=== PATIENT | male | born 1985 | race Caucasian/White ===

== ENCOUNTER 2021-03-04 07:11 | Inpatient (IN) | payer SELFPAY ==
[2021-03-04] VITALS (12 sets, daily range): BP systolic 126–165; BP diastolic 70–93; PULSE 45–55; RESP 12–20; TEMP 36.8–37.1; O2SAT 94–99; BMI 16.8
--- NOTE | 2021-03-04 07:18 | W.ED.ABDPA2 ---
HPI - Abdominal Pain General: Chief Complaint: Abdominal Pain Stated Complaint: N/V,ABD PAIN Time Seen by Provider: 03/04/21 07:14 History of Present Illness: HPI narrative: 35-year-old male presents ER complaining of nausea vomiting abdominal pain. Symptoms began about 3 days ago. He is not had a bowel movement today but had been having regularly. He denies any medic easy or melena. He seems to vaguely localized the pain to the right side of the abdomen is difficult to get a clear sense of where the worst of the pain. Several episodes of vomiting today. He denies dysuria urgency or frequency or fever. MD elicited complaint: abdominal pain Pertinent past history: constipation Onset (ago): day(s) (3) Location: Diffuse and RLQ Severity: severe Quality: cramping and stabbing Migration to: RUQ and RLQ Exacerbating factors: vomiting, movement and other (Exam) Relieving factors: medication Associated Symptoms: Reports constipation, GI cramping, nausea, poor appetite and vomiting; Denies anorexia, belching, bloating, change in bowel habits, change in stool character, chills, coffee ground emesis, diarrhea, dyspepsia, dysuria, excessive flatus, fever(s), heartburn, hematochezia, hematuria, hematemesis, fecal incontinence, loose stools, melena and syncope Review of Systems Const: Denies: fever(s) or chills ENMT: Denies: throat pain, ear or mastoid pain, nasal discharge or nasal congestion Card: Denies: syncope Resp: Denies: dyspnea, productive cough or non-productive cough GI: Reports: nausea, vomiting, constipation and GI cramping; Denies: hematemesis, coffee ground emesis, heartburn, diarrhea, bloating, belching, excessive flatus, fecal incontinence, change in bowel habits, change in stool character, hematochezia or melena : Denies: dysuria or hematuria Skin/Breast: Denies: rash or pruritus PFSH ED PFSH: Medical History Chronic back pain Surgical History No significant past surgical history Social History Smoking and tobacco status: current every day smoker cigarettes Packs smoked per day: 2 Number of cigarettes per day: 6-10 Alcohol intake: never Substance/Drug Use: current Substance/Drug use type: Marijuana Physical Exam Const: COMMON NORMALS: no acute distress GENERAL APPEARANCE: cooperative and comfortable ORIENTATION/CONSCIOUSNESS: Yes awake, Yes oriented to person, Yes oriented to place and Yes oriented to time HENMT: COMMON NORMALS: normocephalic, atraumatic and hearing grossly normal bilaterally HEAD & SCALP: normocephalic and atraumatic Neck/C-Spine: COMMON NORMALS: no JVD Resp: COMMON NORMALS: normal respiratory effort, No retractions, No use of accessory muscles and clear to auscultation bilaterally AUSCULTATION: clear to auscultation bilaterally Cardio: COMMON NORMALS: no JVD, regular rate, regular rhythm and No murmurs present (Cardio) RATE: regular rate RHYTHM: regular rhythm GI: COMMON NORMALS: No hepatosplenomegaly present AUSCULTATION: Yes normoactive bowel sounds PALPATION: Yes Tenderness to palpation present (GI) (Severe diffuse, tenderness disproportionate with exam) and Yes No hepatosplenomegaly present Extremity: COMMON NORMALS: normal to inspection, capillary refill normal, no clubbing, cyanosis or edema, no calf tenderness and no pedal edema Neuro: SENSORIUM/ORIENTATION: Yes oriented to person, Yes oriented to place and Yes oriented to time Skin: COMMON NORMALS: no rashes or lesions noted GENERAL SKIN EXAM: no rashes or lesions noted Course Vital Signs: Vital signs: Vital Signs Temperature 98.8 F 03/05/21 04:00 Pulse Rate 67 03/05/21 04:00 Respiratory Rate 18 03/05/21 05:46 Blood Pressure 145/77 03/05/21 04:00 Pulse Oximetry 91 03/05/21 04:00 MDM - Abdominal Pain MDM Narrative: Medical decision making narrative: CT showed fluid in the abdomen he is has a very low BMI and very little body fat we really cannot see his appendix very well but he did have some inflammation around the gallbladder as well as some pelvic and right upper quadrant fluid around the gallbladder and liver. Ultrasound was ordered after consultation with radiology did not show any definitive Raeann cystitis nor were we able to identify the appendix. Patient has leukocytosis exam is difficult and is uncertain how much it contributes reliably to his evaluation. He does have a significant amount of fluid intra-abdominal. Cannot be certain of the source. Discussed with Dr. Bhat and asked him to consult he recommended observation and starting on antibiotics. Will admit to his services. Lab Data: Labs: Lab Results 03/04/21 03/04/21 Range/Units 08:10 08:10 WBC 22.8 H (4.0-10.0) 10^3/ uL RBC 4.56 (4.1-5.3) 10^6/u L Hgb 15.8 (11.7-16.6) g/dL Hct 46.3 (42.0-52.0) % MCV 101.5 H (80-94) fL MCH 34.6 H (28.0-34.0) pg MCHC 34.1 (30.0-36.0) g/dL RDW 16.5 H (12.1-15.1) % Plt Count 313 (130-400) 10^3/c mm MPV 9.7 (7.4-10.4) fL Neut % (Auto) 86.1 % Lymph % (Auto) 8.2 % [place] % (Auto) 4.6 % Eos % (Auto) 0.1 % Baso % (Auto) 0.3 % Neut # (Auto) 19.64 H (1.8-7.7) 10^3/u L Lymph # (Auto) 1.9 (0.8-4.8) 10^3/u L [place] # (Auto) 1.0 H (0.2-0.9) 10^3/u L Eos # (Auto) 0.0 (0.0-0.8) 10^3/u L Baso # (Auto) 0.1 (0.0-0.1) 10^3/u L Nucleated RBC % (a uto) 0 % Nucleated RBCs # 0.0 /100WBC Sodium 141 (136-145) mmol/L Potassium 4.3 (3.5-5.1) mmol/L Chloride 102 (98-107) mmol/L Carbon Dioxide 27 (22-29) mmol/L Anion Gap 16.3 (5-19) BUN 18 (6-20) mg/dL Creatinine 0.8 (0.7-1.2) mg/dL GFR Calculation 110.0 (90-130) mL/min Glucose 112 (65-115) mg/dL Calculated Osmolal ity 295 (285-295) mOsm/k g Calcium 9.5 (8.5-10.5) mg/dL Total Bilirubin 0.7 (0.15-1.2) mg/dL AST 18 (0-40) U/L ALT 22 (0-41) U/L Alkaline Phosphata se 95 (40-130) IU/L Total Protein 7.3 (6.6-8.7) g/dL Albumin 4.8 (3.5-5.2) g/dL Globulin 2.5 (1.3-4.6) g/dL Lipase 14 (13-60) U/L Discharge Plan Discharge Patient Disposition: Placed in Observation Admit Provider: Werner Bhat Clinical Impression: Right upper quadrant abdominal pain, Nausea & vomiting, Leukocytosis Coding Level of Care Code ED Weaving Machine Operator for Thuy Maguire
[2021-03-04 08:30] LABS: Basophils # 0.1 10^3/uL (0.0-0.1); Basophils % 0.3 %; Eosinophils % 0.1 %; Hematocrit 46.3 % (42.0-52.0); Hemoglobin 15.8 g/dL (11.7-16.6); Lymphocytes # 1.9 10^3/uL (0.8-4.8); Lymphocytes % 8.2 %; Mean Corpuscular HGB Conc 34.1 g/dL (30.0-36.0); Mean Corpuscular Hemoglobin 34.6 pg (28.0-34.0); Mean Corpuscular Volume 101.5 fL (80-94); Mean Platelet Volume 9.7 fL (7.4-10.4); Monocytes % 4.6 %; Neutrophils # 19.64 10^3/uL (1.8-7.7); Neutrophils % 86.1 %; Nucleated Red Blood Cells % 0 %; Platelet Count 313 10^3/cmm (130-400); Red Blood Count 4.56 10^6/uL (4.1-5.3); Red Cell Distribution Width 16.5 % (12.1-15.1); White Blood Count 22.8 10^3/uL (4.0-10.0)
--- NOTE | 2021-03-04 08:45 | CT_ITS ---
WS: [id number] CT ABDOMEN PELVIS TECHNIQUE: Contrast-enhanced CT of the abdomen and pelvis with coronal and sagittal reformatted image s. CLINICAL INFORMATION: abd pain COMPARISON: None. DLP: 665.[address] scans at [facility] use at least one of these dose optimization techniques: automat ed exposure control; mA and/or kV adjustment per patient size (includes targeted exams where dose is matched to clinical indication); or iterative reconstruction. FINDINGS: Lung bases are well aerated. Fluid distended gallbladder with mild prominence of the common bile duct . Mild intrahepatic biliary ductal dilatation. No visualized choledocholithiasis. Minimal dilatation of the pancreatic duct. Pancreatic parenchyma appears normal. Free fluid in the right upper quadrant and right lower quadrant. Trace free fluid in the pelvis. Enhancing gallbladder wall. No cholelithias is visualized. Air-fluid level in the stomach. Normal renal parenchymal enhancement. No hydronephrosis. Normal calib er abdominal aorta. Urine distended bladder. Right colon and proximal transverse colon constipation. Appendix is not visualized. CT/CT abdomen pelvis w con* [id number] IMPRESSION: 1. Fluid distended gallbladder with mild gallbladder wall enhancement. Free fl uid in the right upper quadrant and right lower quadrant. Trace free fluid in t he pelvis. Gallbladder can be further evaluated with ultrasound. 2. Mild intrahepatic biliary ductal dilatation. Mild dilatation of the common bile duct. 3. No hydronephrosis in either kidney. 4. Appendix is not visualized. 5. Right colon and proximal transverse colon constipation. 6. Urine distended bladder. Notified William Elizondo DO at 03/04/2021 9:43 AM.
[2021-03-04] MEDS: sodium chloride 0.9% 1,000 ML 999 ML IV ×2 (08:55→11:33)
[2021-03-04] MEDS: promethazine 25 mg/mL SDV 1 mL IM (08:55)
[2021-03-04] MEDS: morphine 4 mg/mL SDV 1 mL IVP ×6 (08:55→23:49)
[2021-03-04 09:02] LABS: Alanine Aminotransferase 22 U/L (0-41); Albumin Level 4.8 g/dL (3.5-5.2); Alkaline Phosphatase 95 IU/L (40-130); Anion Gap 16.3 (5-19); Aspartate Amino Transferase 18 U/L (0-40); Blood Urea Nitrogen 18 mg/dL (6-20); Calcium 9.5 mg/dL (8.5-10.5); Carbon Dioxide 27 mmol/L (22-29); Chloride 102 mmol/L (98-107); Globulin 2.5 g/dL (1.3-4.6); Glucose 112 mg/dL (65-115); Lipase 14 U/L (13-60); Osmolality Calculated 295 mOsm/kg (285-295); Potassium 4.3 mmol/L (3.5-5.1); Sodium 141 mmol/L (136-145); Total Bilirubin 0.7 mg/dL (0.15-1.2); Total Protein 7.3 g/dL (6.6-8.7)
--- NOTE | 2021-03-04 09:30 | US_ITS ---
WS: [id number] ULTRASOUND ABDOMEN LIMITED CLINICAL INFORMATION: attn to appendix and GB COMPARISON: None. FINDINGS: Distended bowel loops right lower quadrant. Appendix not visualized. No noncompressible bow el. Liver Size: Enlarged Craniocaudal length: 17.0 cm. Echogenicity: Coarse Surface nodularity: None. Mass (size and location): None. Bile ducts Intrahepatic ducts: Normal. Common bile duct diameter: 0.6 cm. Gallbladder No cholelithiasis. Small amount pericholecystic fluid. Gallstones: None. Gallbladder sludge: None. Gallbladder wall thickening: None. Pericholecystic fluid: Present Sonographic Diamond sign: Absent. Pancreas Normal as visualized. Right kidney: Normal. Hydronephrosis: None. Size: 11.1 cm x 4.3 cm x 5.0 cm. Abdominal aorta and IVC Visualized portions are normal. Ascites: None. US/US abdomen limited [id number] IMPRESSION: 1. Mild hepatomegaly with diffuse fatty infiltration. 2. Fluid distended gallbladder with pericholecystic fluid. No cholelithiasis. No significant gallbladder wall thickening. 3. Common bile duct measuring 6 mm within normal limits. 4. No hydronephrosis in the right kidney. 5. Distended bowel loops right lower quadrant. Appendix not Visualized.
[2021-03-04] MEDS: iohexol 300 mg/mL 100 mL Btl IV (10:00)
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
[2021-03-04] MEDS: piperacillin-tazobactam 3.375 GM in sodium chloride 0.9% (plus) 50 ML IV ×2 (12:47→20:55)
[2021-03-04] MEDS: sodium chlor 0.45% +KCl 20 mEq 20 MEQ/1,000 ML BAG 100 MEQ IV (12:47)
[2021-03-04] MEDS: famotidine 20 mg/2 mL INJ IVP ×2 (12:47→23:50)
[2021-03-04] MEDS: ondansetron 2 mg/ML SDV 2 mL 4 MG IVP (14:06)
[2021-03-04 14:26] LABS: Charge for UA Resulting for Rev
[2021-03-04 15:11] LABS: Urine Color Yellow (Yellow)
[2021-03-04 15:12] LABS: Add Urine Microscopic? NO; Bilirubin Urine Neg (Negative); Blood Urine Neg (Negative); Glucose Urine UA Norm (Normal); Ketones Urine 1+ (Negative); Leukocyte Esterase Urine Negative (Negative); Nitrate Urine Negative (Negative); Protein Urine Neg (Negative); Specific Gravity, Urine 1.005 (1.005-1.030); Sulfosalicylic Acid Urine Negative (Negative); Urine Appearance Clear (CLEAR); Urobilinogen Urine 1 mg/dL (Negative); pH Urine 8 (5-7)
--- NOTE | 2021-03-04 20:32 | PC.NURSE ---
PAIN Pt c/o not receiving adequate pain relief. Has c/o generalized abd pain/tenderness. Says pain is shortly helped by the pain med but then is right back to severe. Discussion with pt about pain meds and freq presently ordered. Called Dr Bhat to report pts c/o. Order was received for an extra dose of IV Morphine now and to increase freq to Q3h prn. Pt was told of changes. ALso received order for Nicotine patch for pt. Has c/o right groin pain/tenderness as well and says started after he went to the bathroom earlier in day. Area was examined and no redness or swelling noted. Area is tender to palpation
[2021-03-04] MEDS: nicotine 14 mg Patch 1 PATCH TRANSDERMA (21:46)
[2021-03-05] VITALS (19 sets, daily range): BP systolic 107–148; BP diastolic 70–88; PULSE 60–103; RESP 14–20; TEMP 36.6–37.8; O2SAT 91–99
[2021-03-05] MEDS: morphine 4 mg/mL SDV 1 mL IVP ×4 (02:52→13:31)
[2021-03-05 03:09] LABS: Basophils % 0.2 %; Eosinophils # 0.1 10^3/uL (0.0-0.8); Eosinophils % 0.4 %; Hemoglobin 15.1 g/dL (11.7-16.6); Lymphocytes # 1.7 10^3/uL (0.8-4.8); Lymphocytes % 8.1 %; Mean Corpuscular HGB Conc 33.6 g/dL (30.0-36.0); Mean Corpuscular Hemoglobin 34.4 pg (28.0-34.0); Mean Corpuscular Volume 102.5 fL (80-94); Mean Platelet Volume 9.9 fL (7.4-10.4); Monocytes # 1.3 10^3/uL (0.2-0.9); Monocytes % 6.2 %; Neutrophils # 17.47 10^3/uL (1.8-7.7); Neutrophils % 84.5 %; Nucleated Red Blood Cells % 0 %; Platelet Count 272 10^3/cmm (130-400); Red Blood Count 4.39 10^6/uL (4.1-5.3); Red Cell Distribution Width 17.2 % (12.1-15.1); White Blood Count 20.7 10^3/uL (4.0-10.0)
[2021-03-05 03:31] LABS: Alanine Aminotransferase 23 U/L (0-41); Alkaline Phosphatase 92 IU/L (40-130); Aspartate Amino Transferase 33 U/L (0-40); Lipase 26 U/L (13-60); Total Bilirubin 0.7 mg/dL (0.15-1.2)
[2021-03-05 03:33] LABS: Anion Gap 15.7 (5-19); Blood Urea Nitrogen 10 mg/dL (6-20); Calcium 8.7 mg/dL (8.5-10.5); Carbon Dioxide 24 mmol/L (22-29); Chloride 102 mmol/L (98-107); Glomerular Filtration Rate 153.3 mL/min (90-130); Glucose 97 mg/dL (65-115); Osmolality Calculated 283 mOsm/kg (285-295); Potassium 4.7 mmol/L (3.5-5.1); Sodium 137 mmol/L (136-145)
[2021-03-05] MEDS: piperacillin-tazobactam 3.375 GM in sodium chloride 0.9% (plus) 50 ML IV ×2 (04:26→13:20)
[2021-03-05] MEDS: sodium chlor 0.45% +KCl 20 mEq 20 MEQ/1,000 ML BAG 100 MEQ IV ×2 (06:19→16:45)
--- NOTE | 2021-03-05 07:00 | PM.PN ---
Subjective Subjective: Interval history: The patient says he had a long night. He required ongoing pain medication. He says he still has abdominal pain but seems to suggest that it's more in the lower abdomen today. Vitals/I&O/Wt Last Vital Signs Temp 98.8 F 03/05/21 04:00 Pulse 67 03/05/21 04:00 Resp 18 03/05/21 05:46 BP 145/77 03/05/21 04:00 Pulse Ox 91 03/05/21 04:00 03/04/21 03/05/21 03/05/21 22:59 06:59 14:59 Intake Total 1050 / 3100 50 / 3100 Output Total 0 / 0 Balance 1050 / 3100 50 / 3100 Weight last 48 hrs Weight 124 lb Physical Exam Narrative: EXAM NARRATIVE: The patient remains afebrile. He was sleeping when I entered the room but he was easily arousable. He does not appear to be in any distress until he tries to move around and then complains of abdominal pain. Bowel sounds are present. He does have tenderness in both lower quadrants and a little bit less in the right upper quadrant. No obvious masses are palpated. Data : 03/05/21 02:45 03/05/21 02:45 Other Labs: Laboratory Tests 03/05/21 02:45 Total Bilirubin 0.7 Direct Bilirubin 0.30 AST 33 ALT 23 Alkaline Phosphatase 92 Lipase 26 A&P Assessment and plan (1) Right upper quadrant abdominal pain: Status: Acute (2) Nausea & vomiting: Status: Acute (3) Right lower quadrant pain: Status: Acute (4) Left lower quadrant pain: The patient seems to have more in the way of lower abdominal discomfort today. While his right upper quadrant remains somewhat tender, it does not appear to be as much as yesterday. He remains afebrile and his white blood cell count is only slightly improved. I told the patient I think we need to consider at least diagnostic laparoscopy to make sure were not missing a serious surgical problem. He still seems a little bit hesitant to agree to that. He would like to discuss this with his family members today and would like to have me present for the discussion around midday when everybody is well awake. I told him I would return for further discussions at that time. Status: Acute Attestations Medical Necessity Statement*: The patient requires at least continued care and observation status. He may very well need to be changed to inpatient status, especially if surgery is contemplated later today. Coding Level of Care Code Acute Multimedia Journalist for g Fwd Diagnoses Right upper quadrant abdominal pain R10.11 Nausea & vomiting R11.2 Right lower quadrant pain R10.31 Left lower quadrant pain R10.32
[2021-03-05] MEDS: nicotine 14 mg Patch 1 PATCH TRANSDERMA (07:35)
--- NOTE | 2021-03-05 10:28 | PC.CHAP ---
Pastoral Care Encounter/Spiritual Assessment Type of Contact [] Declined gasket supervisor visit [] Patient/Family/Request visit [] Outpatient visit [] Follow-up visit [] Physician referral [] Code/Alert [x] Routine visit [] Staff referral [] Actively dying [] Patient sleeping [] Family support [] [] Out of room [] Palliative care [] [] Receiving care in room [] Pre-surgical visit [] Trauma [] Long length of stay [] ICU visit [] Other: Relational/Emotional Strength [] Patient feels connected with others/family/visitors/staff [] Distress [] Loneliness/isolation [] Abandonment Spirituality of Patient [] Person of Betty [] Attends Yarsanism of their Betty [] Believes in Prayer [] Reads Bible or Hoahaoism materials [] There are Spiritual issues to be addressed 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 Interventions [x] Prayer [] Active listening [] Non-anxious presence [] Spiritual/emotional support [] Crisis/trauma care [] Spiritual counseling [] Bereavement support [] Provided bereavement packet [] Provided Bible/devotional materials [] Provided toy/stuffed animal, coloring book to patient or family member [] Provided Communion [] Anointing/[place] [] Salvation [x] Completed spiritual assessment [] Other: Impact on Illness or Injury [] Angry [] Fearful [] Anxious [] Often cries [] Exhaustion [] Unable to work [] Unable to attend protestant [] Unable to walk/stand [] Unable to read [] Unable to drive [] Unable to eat/drink [] Unable to sleep [] Unable to be with family [] Patient intubated [] Other: Summary patient in alots of pain Time spent with patient
[2021-03-05] MEDS: famotidine 20 mg/2 mL INJ IVP ×2 (13:31→23:58)
--- NOTE | 2021-03-05 14:23 | P.ANESASSM_ITS ---
Pre-Anesthetic Assessment Pre-Anesthetic Assessment: Height/Weight: Height 1.83 m Weight 56.245 kg Temp Pulse Resp BP Pulse Ox 99.3 F 70 18 131/74 95 03/05/21 11:08 03/05/21 11:08 03/05/21 13:31 03/05/21 11:08 03/05/21 13:31 Preop Diagnosis: abdominal pain Proposed Procedure: Operation Date: 03/05/21 16:30 Proposed Procedures p Laparoscopy possible lap rose possible appendectomy(Not Applicable) - Werner Bhat MD s Laparoscopic Cholecystectomy(Not Applicable) - Werner Bhat MD s Laparoscopic Appendectomy(Not Applicable) - Werner Bhat MD Familial anesthetic complications: none Was Beta Margaux taken within 24 hours: N/A Was Clonidine taken within 24 hours: N/A Last intake: > 8 hrs Social: Social History: Tobacco and No alcohol Exam: Pre-Anes Outpt Exam: alert, oriented x 3, clear to auscultation bilaterally and regular rate & rhythm Airway: Cervical ROM: WNL MP: 2 Dentition: Other (chipped, rotten, poor dentition, discolored) Pulmonary: Pulmonary: Asthma Metabolic: Comments: hypoglycemic episodes Anesthetic Plan: ASA status: 2 Anesthesia: General Risk of > 500 ml blood loss (7ml/kg in children): No Meds/Allergies Current Medications: Current Medications Generic Name Dose Route Start Last Admin Trade Name Freq PRN Reason Stop Dose Admin Famotidine 20 mg 03/04/21 12:30 03/05/21 13:31 Famotidine 20 Mg /2 Ml Inj IVP 20 mg Q12H KANDIS Administration Piperacillin Sod/T azobactam 50 mls @ 12.5 mls /hr 03/04/21 12:30 03/05/21 13:20 Sod 3.375 gm/ So dium Chloride IV 12.5 mls/hr Q8H KANDIS Administration Protocol Potassium Chloride /Sodium Chloride 20 meq in 1,000 m ls @ 100 mls/hr 03/04/21 12:30 03/05/21 06:19 Sodium Chlor 0.4 5% +Kcl 20 Meq IV 100 mls/hr .Q10H KANDIS Administration Morphine Sulfate 2 - 4 mg 03/04/21 20:23 03/05/21 13:31 Morphine 4 Mg/Ml Sdv 1 Ml IVP 4 mg Q3H PRN Administration SEVERE PAIN Nicotine 1 patch 03/04/21 20:28 03/05/21 07:35 Nicotine 14 Mg P atch TRANSDERMA 1 patch DAILY KANDIS Administration Ondansetron HCl 4 mg 03/04/21 12:23 03/04/21 14:06 Ondansetron 2 Mg /Ml Sdv 2 Ml IVP 4 mg Q4H PRN Administration NAUSEA AND VOMITI NG PFSH Anesthesia PFSH: Medical History Chronic back pain Surgical History No significant past surgical history Social History Smoking and tobacco status: current every day smoker cigarettes Packs smoked per day: 2 Number of cigarettes per day: 6-10 Alcohol intake: never Substance/Drug Use: current Substance/Drug use type: Marijuana Data Anesthesia CBC & Chem 7: 03/05/21 02:45 03/05/21 02:45 Other Labs: Laboratory Results - last 48 hr 03/04/21 03/04/21 03/04/21 08:10 08:10 14:14 WBC 22.8 H RBC 4.56 Hgb 15.8 Hct 46.3 MCV 101.5 H MCH 34.6 H MCHC 34.1 RDW 16.5 H Plt Count 313 MPV 9.7 Neut % (Auto) 86.1 Lymph % (Auto) 8.2 [place] % (Auto) 4.6 Eos % (Auto) 0.1 Baso % (Auto) 0.3 Neut # (Auto) 19.64 H Lymph # (Auto) 1.9 [place] # (Auto) 1.0 H Eos # (Auto) 0.0 Baso # (Auto) 0.1 Nucleated RBC % (auto) 0 Nucleated RBCs # 0.0 Sodium 141 Potassium 4.3 Chloride 102 Carbon Dioxide 27 Anion Gap 16.3 BUN 18 Creatinine 0.8 GFR Calculation 110.0 Glucose 112 Calculated Osmolality 295 Calcium 9.5 Total Bilirubin 0.7 Direct Bilirubin AST 18 ALT 22 Alkaline Phosphatase 95 Total Protein 7.3 Albumin 4.8 Globulin 2.5 Lipase 14 Urine Color Yellow Urine Appearance Clear Urine pH 8 H Ur Specific [place] 1.005 Urine Protein Neg Urine Glucose (UA) Norm Urine Ketones 1+ H Urine Blood Neg Urine Nitrate Negative Urine Bilirubin Neg Prot Sulfosalicylic Acd Negative Urine Urobilinogen 1 H Ur Leukocyte Esterase Negative Urine RBC Cancelled Urine WBC Cancelled Ur Squamous Epith Cells Cancelled Ur Transition Epith Cell Cancelled Ur Renal Epithelial Cell Cancelled Calcium Oxalate Crystal Cancelled Uric Acid Crystals Cancelled Triple Phos Crystals Cancelled Other Crystals Cancelled Amorphous Sediment Cancelled Urine Bacteria Cancelled Hyaline Casts Cancelled Fine Granular Casts Cancelled Coarse Granular Casts Cancelled RBC Casts Cancelled Other Casts Cancelled Urine Mucus Cancelled Urine Trichomonas Cancelled Urine Yeast Cancelled Urine Sperm Cancelled Ur Oval Fat Bodies Cancelled 03/05/21 03/05/21 03/05/21 02:45 02:45 02:45 WBC 20.7 H RBC 4.39 Hgb 15.1 Hct 45.0 MCV 102.5 H MCH 34.4 H MCHC 33.6 RDW 17.2 H Plt Count 272 MPV 9.9 Neut % (Auto) 84.5 Lymph % (Auto) 8.1 [place] % (Auto) 6.2 Eos % (Auto) 0.4 Baso % (Auto) 0.2 Neut # (Auto) 17.47 H Lymph # (Auto) 1.7 [place] # (Auto) 1.3 H Eos # (Auto) 0.1 Baso # (Auto) 0.0 Nucleated RBC % (auto) 0 Nucleated RBCs # 0.0 Sodium 137 Potassium 4.7 Chloride 102 Carbon Dioxide 24 Anion Gap 15.7 BUN 10 Creatinine 0.6 L GFR Calculation 153.3 H Glucose 97 Calculated Osmolality 283 L Calcium 8.7 Total Bilirubin 0.7 Direct Bilirubin 0.30 AST 33 ALT 23 Alkaline Phosphatase 92 Total Protein 6.0 L Albumin 4.0 Globulin 2.0 Lipase 26 Urine Color Urine Appearance Urine pH Ur Specific [place] Urine Protein Urine Glucose (UA) Urine Ketones Urine Blood Urine Nitrate Urine Bilirubin Prot Sulfosalicylic Acd Urine Urobilinogen Ur Leukocyte Esterase Urine RBC Urine WBC Ur Squamous Epith Cells Ur Transition Epith Cell Ur Renal Epithelial Cell Calcium Oxalate Crystal Uric Acid Crystals Triple Phos Crystals Other Crystals Amorphous Sediment Urine Bacteria Hyaline Casts Fine Granular Casts Coarse Granular Casts RBC Casts Other Casts Urine Mucus Urine Trichomonas Urine Yeast Urine Sperm Ur Oval Fat Bodies Cardiac Studies: No Data to Display
--- NOTE | 2021-03-05 20:00 | PC.NURSE ---
OR Pt just left floor to OR via gurney
--- NOTE | 2021-03-05 22:39 | P.OP_ITS ---
Operative Report Date of procedure: March 05, 2021 Pre-op Diagnosis: Abdominal pain, suspected cholecystitis. Post-op diagnosis: same Post-op Diagnosis: Same, with bile peritonitis. Procedure Done: Laparoscopic cholecystectomy. Specimens removed/disposition: Gallbladder. Surgeon: Werner Bhat Anesthesia: General Estimated blood loss (mL): 10 Complications: None. Condition: stable Disposition: PACU Procedure: The patient was brought to the Operating Room and was placed in a supine position on the Operating Room table. General endotracheal anesthesia was induced. The abdomen was prepped and draped in a sterile fashion. A small vertical incision was carried out in the base of the umbilicus. Blunt dissection was carried out down to the fascia. A stay suture of 0 Vicryl was placed on either side of the midline and the midline fascia was incised. The underlying peritoneum was opened bluntly and the [place] port was placed directly into the peritoneal cavity and was held in place with the inflatable balloon. The peritoneal cavity was insufflated with carbon dioxide. The laparoscope was used to inspect the abdominal cavity. Immediately it could be seen that there was bilious fluid in the subhepatic space, the right gutter and into the pelvis. A 5 millimeter port was placed in the epigastrium under direct vision. Two 5-millimeter ports were placed on the right side of the abdomen under direct vision. The gallbladder was identified underneath the omentum, was grasped and elevated. At this point it could be seen that there was bilious exudate covering the lower half of the gallbladder to the infundibulum. Blunt dissection and hydrodissection were carried out in the infundibular region of the gallbladder and the fatty adhesions were taken down off of the infundibulum. The gallbladder did not appear to be in direct contact with the duodenum and only more bilious fluid without particulate matter was fo und in the area. No obvious duodenal source for the bile was seen. The decision was made to proceed with a cholecystectomy. Further blunt dissection revealed the cystic duct and cystic artery. The gallbladder was partially removed from the liver bed using cautery and the spatula to confirm the anatomy before the structures were clipped and divided. The gallbladder was then removed from the liver bed using cautery and the spatula. After the gallbladder had been removed from the liver bed, the laparoscope was moved to the epigastric port and the gallbladder was removed from the peritoneal cavity through the umbilical port site after being placed in a laparoscopic bag. No obvious palpable abnormalities were present in the gallbladder while it was still in the bag. The [place] port was replaced and then extensive irrigation was carried out throughout the entire abdomen including all quadrants. The appendix was identified and was normal in appearance. No inflammatory sources were found in the lower abdomen. No bilious fluid or other material was building back up in the subhepatic space. A 19 [place] fluted Edd drain was placed into the abdominal cavity and was brought out through the lateral 5 mm port site on the right side. It was placed in the subhepatic space and was sutured to the skin with a suture of 2-0 silk. The [place] port was removed. The stay sutures of Vicryl were tied to each other at the umbilicus, closing the defect so that it was airtight. The perihepatic spaces were irrigated with saline one final time and the liver bed was reinspected. No ongoing problems were seen. The Edd drain was in good position. The remaining ports were removed from the abdominal wall and the pneumoperitoneum was evacuated. All skin incisions were closed using inverted interrupted sutures of 4-0 Vicryl. Benzoin and Steri-Strips were placed over the incisions and Band-Aids followed. A drain sponge dressing was placed around the Edd drain site. The patient was taken to the Recovery Area in stable condition postoperatively.
[2021-03-05] MEDS: fentaNYL 50 mcg/mL INJ 2mL IVP ×2 (22:58→23:03)
--- NOTE | 2021-03-05 23:30 | ANE.PACU2 ---
Inpatient post-anesthesia follow up: Airway intact: Yes Vital signs: Temperature 98.3 F Pulse Rate [Left R adial] 53 Pulse Rate 68 Respiratory Rate 18 Blood Pressure [Le ft Radial 149/93 Artery] Blood Pressure 116/65 Pulse Oximetry 97 Oxygen Delivery Me thod Room Air Oxygen Flow Rate Fraction of Inspir ed Oxygen Hydration adequate: Yes Nausea and vomiting: No Pain level: 3 Mental status: Baseline
[2021-03-06] VITALS (18 sets, daily range): BP systolic 116–149; BP diastolic 57–79; PULSE 58–88; RESP 15–22; TEMP 36.6–37.4; O2SAT 95–99
[2021-03-06] MEDS: piperacillin-tazobactam 3.375 GM in sodium chloride 0.9% (plus) 50 ML IV ×4 (00:03→23:18)
[2021-03-06] MEDS: heparin 5,000 unit/mL INJ 1 mL 5000 UNIT SUBCUT ×3 (00:05→23:18)
[2021-03-06] MEDS: HYDROcodone-acetaminophen 5-325 mg Tablet PO ×5 (01:14→20:12)
--- NOTE | 2021-03-06 01:19 | PC.NURSE ---
Pt returned from OR at 23:17. He was alert and wasnt complaining of pain. Dressing was dry and intact. Drain was emptied with 115 mL.
[2021-03-06] MEDS: levalbuterol 0.63 mg/3 mL Neb INHALATION ×5 (01:27→21:04)
[2021-03-06 02:42] LABS: Basophils % 0.2 %; Eosinophils % 0.1 %; Hematocrit 39.4 % (42.0-52.0); Hemoglobin 12.9 g/dL (11.7-16.6); Lymphocytes # 0.7 10^3/uL (0.8-4.8); Lymphocytes % 3.5 %; Mean Corpuscular HGB Conc 32.7 g/dL (30.0-36.0); Mean Corpuscular Hemoglobin 33.9 pg (28.0-34.0); Mean Corpuscular Volume 103.4 fL (80-94); Mean Platelet Volume 9.8 fL (7.4-10.4); Monocytes # 0.5 10^3/uL (0.2-0.9); Monocytes % 2.8 %; Neutrophils # 17.17 10^3/uL (1.8-7.7); Neutrophils % 92.2 %; Nucleated Red Blood Cells % 0 %; Platelet Count 205 10^3/cmm (130-400); Red Blood Count 3.81 10^6/uL (4.1-5.3); Red Cell Distribution Width 17.1 % (12.1-15.1); White Blood Count 18.6 10^3/uL (4.0-10.0)
[2021-03-06 03:03] LABS: Anion Gap 16.5 (5-19); Blood Urea Nitrogen 9 mg/dL (6-20); Calcium 7.7 mg/dL (8.5-10.5); Carbon Dioxide 21 mmol/L (22-29); Chloride 102 mmol/L (98-107); Glomerular Filtration Rate 153.3 mL/min (90-130); Glucose 113 mg/dL (65-115); Osmolality Calculated 279 mOsm/kg (285-295); Potassium 4.5 mmol/L (3.5-5.1); Sodium 135 mmol/L (136-145)
[2021-03-06 04:05] LABS: Alanine Aminotransferase 23 U/L (0-41); Albumin Level 3.1 g/dL (3.5-5.2); Alkaline Phosphatase 81 IU/L (40-130); Aspartate Amino Transferase 31 U/L (0-40); Globulin 2.6 g/dL (1.3-4.6); Total Bilirubin 0.6 mg/dL (0.15-1.2); Total Protein 5.7 g/dL (6.6-8.7)
[2021-03-06] MEDS: D5-NS 0.45% + KCL 20 mEq 20 MEQ/1,000 ML BAG 100 MEQ IV ×2 (06:27→16:32)
[2021-03-06] MEDS: ketorolac 30 mg/mL INJ IVP (09:03)
--- NOTE | 2021-03-06 09:27 | P.PN_ITS ---
Subjective Subjective: Interval history: I feel a lot better. The patient is not passing flatus yet. Vitals/I&O/Wt Last Vital Signs Temp 98.2 F 03/06/21 08:00 Pulse 73 03/06/21 08:56 Resp 18 03/06/21 08:51 BP 136/74 03/06/21 08:00 Pulse Ox 95 03/06/21 08:51 03/05/21 03/06/21 03/06/21 22:59 06:59 14:59 Intake Total 1060 / 1280 170 / 1280 Output Total 965 955 / 965 230 / 230 Balance 1050 / 315 -785 / 315 -230 / -230 Physical Exam Narrative: EXAM NARRATIVE: The patient is afebrile and vital signs are stable. He does have some bowel sounds. The Edd drain has some serosanguineous fluid in the bulb. Data : 03/06/21 02:20 03/06/21 02:20 Other Labs: Laboratory Tests 03/06/21 02:20 Total Bilirubin 0.6 Direct Bilirubin 0.30 AST 31 ALT 23 Alkaline Phosphatase 81 A&P Assessment and plan (1) Gallbladder perforation: Postop day #1 following cholecystectomy for cholecystitis/gallbladder perforation/bile peritonitis. Operative findings were discussed with the patient. I told him that this is an unusual case, but I am fairly confident that we took care of all of his issues last night in the operating room. While I realize a small perforated duodenal ulcer was still a possibility, I think that is less likely. The fact that he h as only serosanguineous fluid in his Edd drain this morning along with the fact that the patient is feeling so much better leads me to believe he is going to have continued improvement. Continue current management. I made the patient aware I am likely going to discharge him with the Edd drain in place, perhaps as early as tomorrow. Status: Acute Attestations Medical Necessity Statement*: Patient requires continued inpatient care following surgery for cholecystectomy and bile peritonitis. Coding Level of Care Code Acute Passenger Rate Clerk for Thuy Maguire Diagnoses Gallbladder perforation K82.2
[2021-03-06] MEDS: famotidine 20 mg/2 mL INJ IVP (10:28)
[2021-03-06] MEDS: nicotine 14 mg Patch 1 PATCH TRANSDERMA (10:29)
--- NOTE | 2021-03-06 10:48 | PC.CHAP ---
Pastoral Care Encounter/Spiritual Assessment Type of Contact [] Declined mental health specialist visit [] Patient/Family/Request visit [] Outpatient visit [] Follow-up visit [] Physician referral [] Code/Alert [x] Routine visit [] Staff referral [] Actively dying [] Patient sleeping [] Family support [] [] Out of room [] Palliative care [] [] Receiving care in room [] Pre-surgical visit [] Trauma [] Long length of stay [] ICU visit [] Other: Relational/Emotional Strength []x Patient feels connected with others/family/visitors/staff [] Distress [] Loneliness/isolation [] Abandonment Spirituality of Patient [x] Person of Betty [] Attends Jainism of their Betty [x] Believes in Prayer [] Reads Bible or Methodist materials [] There are Spiritual issues to be addressed Chief Deputy Sheriff Interventions []x Prayer [x] Active listening [x] Non-anxious presence [x] Spiritual/emotional support [] Crisis/trauma care [] Spiritual counseling [] Bereavement support [] Provided bereavement packet [] Provided Bible/devotional materials [] Provided toy/stuffed animal, coloring book to patient or family member [] Provided Communion [] Anointing/[place] [] Salvation [x Completed spiritual assessment [] Other: Impact on Illness or Injury [] Angry [] Fearful [] Anxious [] Often cries [] Exhaustion [] Unable to work [] Unable to attend buddhism [] Unable to walk/stand [] Unable to read [] Unable to drive [] Unable to eat/drink [] Unable to sleep [] Unable to be with family [] Patient intubated [] Other: Summary patient doing better today m[n less pain Time spent with patient 10 min
--- NOTE | 2021-03-06 19:48 | PC.NURSE ---
Shift Note Frequent safety and comfort rounds continue. Orders and/or nursing care completed as indicated. Patient monitored for response to intervention and treatment(s) Pt ambulated 224 feet and tolerated it fair. Pt passing lots of gas. Education provided includes[ambulation]. 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 Will continue to monitor.
[2021-03-07] VITALS (7 sets, daily range): BP systolic 118–162; BP diastolic 70–82; PULSE 65–77; RESP 14–18; TEMP 36.8–37.2; O2SAT 95–98
[2021-03-07] MEDS: levalbuterol 0.63 mg/3 mL Neb INHALATION ×2 (00:12→03:23)
[2021-03-07] MEDS: famotidine 20 mg/2 mL INJ IVP ×2 (01:44→10:35)
[2021-03-07] MEDS: HYDROcodone-acetaminophen 5-325 mg Tablet PO (01:44)
[2021-03-07] MEDS: ketorolac 30 mg/mL INJ IVP ×2 (01:47→08:21)
[2021-03-07] MEDS: D5-NS 0.45% + KCL 20 mEq 20 MEQ/1,000 ML BAG 100 MEQ IV (02:10)
[2021-03-07 02:54] LABS: Basophils % 0.1 %; Eosinophils # 0.1 10^3/uL (0.0-0.8); Eosinophils % 0.4 %; Hematocrit 36.6 % (42.0-52.0); Hemoglobin 12.1 g/dL (11.7-16.6); Lymphocytes % 15.1 %; Mean Corpuscular HGB Conc 33.1 g/dL (30.0-36.0); Mean Corpuscular Volume 102.8 fL (80-94); Mean Platelet Volume 9.9 fL (7.4-10.4); Monocytes # 0.7 10^3/uL (0.2-0.9); Monocytes % 5.3 %; Neutrophils # 10.34 10^3/uL (1.8-7.7); Neutrophils % 78.6 %; Nucleated Red Blood Cells % 0 %; Platelet Count 222 10^3/cmm (130-400); Red Blood Count 3.56 10^6/uL (4.1-5.3); Red Cell Distribution Width 17.2 % (12.1-15.1); White Blood Count 13.2 10^3/uL (4.0-10.0)
--- NOTE | 2021-03-07 06:31 | PC.NURSE ---
Shift Note Frequent safety and comfort rounds continue. Orders and/or nursing care completed as indicated. Patient monitored for response to intervention and treatment(s). Education provided includes Pain management options, signs and symptoms of infection. Use of IS. Patient had quite a bit of bloating and pain during the night. Patient was given pain medication and educated to try and walk to possibly relieve some gas. Patient had good results with this. Patient had 15mls out of RANDI drain throughout the night. Will continue to monitor.
[2021-03-07] MEDS: piperacillin-tazobactam 3.375 GM in sodium chloride 0.9% (plus) 50 ML IV (06:52)
[2021-03-07] MEDS: nicotine 14 mg Patch 1 PATCH TRANSDERMA (08:21)
--- NOTE | 2021-03-07 10:19 | PC.NURSE ---
nurse stated to wait until the doctor rounded for approval of shower. i set up the shower at this time
[2021-03-07] MEDS: heparin 5,000 unit/mL INJ 1 mL 5000 UNIT SUBCUT (10:35)
--- NOTE | 2021-03-07 11:51 | PM.DCS ---
Discharge Providers Date of Admission: 03/05/21 16:36 Date of Discharge: March 07, 2021 Attending Provider at Admission: Werner Bhat MD Attending Provider at Discharge: Werner Bhat MD Diagnoses at Discharge Discharge Diagnosis (1) Gallbladder perforation: Status: Acute Reason for Visit Reason for Visit: N/V ABD PAIN Hospital Course Hospital Course This is a 35-year-old white male who presented to the emergency department after having abdominal pain that developed several days before. Imaging revealed some fluid around the gallbladder and to a lesser extent throughout the abdomen into the pelvis. His gallbladder wall did not appear to be thickened on ultrasound but he did have a leukocytosis. I suspected that he probably was dealing with a gallbladder issue but it was not completely clear; he did not want to have surgery unless we were sure it was absolutely necessary. He was watched overnight and had developed some increasing lower abdominal pain by the following day. He agreed to at least undergo laparoscopy. He underwent surgery on 03/05/2021 and was found to have bile throughout his abdominal cavity, but most prominently in the right upper quadrant; a distended gallbladder was present with biliary exudate/peel all over the infundibulum. Gallbladder perforation appeared to be the source. No evidence of another source of biliary leak was identified. A cholecystectomy was performed and a Edd drain was left in place. He was kept on broad-spectrum antibiotics postoperatively. By the following day the patient was already feeling much better. His liver function studies remain normal. He remained afebrile. His Edd drain had not drained any bilious material and only had some serosanguineous fluid in the bulb. He was watched one more day and started having bowel movements and his appetite increased. His diet was advanced. By 03/07/2021 he was feeling very well and was anxious to go home. His Edd drain still had only drained small amounts of serosanguineous fluid and we discussed leaving it in place versus taking it out. We discussed the small risk that would be posed if we removed the drain too soon if any other fluid wanted to build up in that region. In the end, he elected to have it removed after discussing the situation with his family. The drain was removed prior to discharge. The patient was discharged to home on 03/07/2021 after having been instructed with respect to wound care, activity limitations, diet, etc. Arrangements will be made for him to follow-up in my office as an outpatient. Physical Exam Narrative: EXAM NARRATIVE: On the day of discharge, the patient's wounds all look good. Bowel sounds were present. Discharge Data Data Completed and Pending: Completed Studies During Hospitalization Category Date Time Status CT abdomen pelvis w con* [id number] Stat Cat Scan 03/04/21 08:45 Completed Pathology: Surgic al [PTH] Routine Pth 03/05/21 22:58 Completed US abdomen limite d [id number] Stat Ultrasound 03/04/21 09:30 Completed Pending at discharge Category Date Time Status ES surgery / GI i mages Routine Exams 03/05/21 20:33 Taken Labs from last 24 hours 03/07/21 02:30 WBC 13.2 H RBC 3.56 L Hgb 12.1 Hct 36.6 L MCV 102.8 H MCH 34.0 MCHC 33.1 RDW 17.2 H Plt Count 222 MPV 9.9 Neut % (Auto) 78.6 Lymph % (Auto) 15.1 [place] % (Auto) 5.3 Eos % (Auto) 0.4 Baso % (Auto) 0.1 Neut # (Auto) 10.34 H Lymph # (Auto) 2.0 [place] # (Auto) 0.7 Eos # (Auto) 0.1 Baso # (Auto) 0.0 Nucleated RBC % (a uto) 0 Nucleated RBCs # 0.0 Vitals: Last Vital Signs Temp 98.2 F 03/07/21 11:33 Pulse 68 03/07/21 11:33 Resp 18 03/07/21 11:33 BP 129/74 03/07/21 11:33 Pulse Ox 98 03/07/21 11:33 Discharge Plan Discharge Patient Disposition: Home Condition: Stable Prescriptions: New hydrocodone-acetaminophen 5-325 mg tablet 1 - 2 tab PO Q5H PRN (Reason: pain) Qty: 30 RF: 0 Continued ibuprofen 200 mg Tablet 200 mg PO TID PRN (Reason: Pain) RF: 0 gabapentin See Rx Instructions .ROUTE .COMPLEX MDD see comment RF: 0 Held Tylenol 325 mg Tablet 325 mg PO TID PRN (Reason: Pain) RF: 0 Hold Instructions: Resume on 03/11/21. Do not take additional Tylenol/acetaminophen with the pain medication prescribed on discharge. Discharge Orders: Discharge Order (Routine); Ordered 03/07/21 Ordered By: Werner Bhat Referrals: Werner Bhat MD [Physician] - 2 weeks (Nursing: Please call Dr. Bhat's office ([phone]) and make an appointment for the patient to be seen in 10-14 days.) Discharge Diet: Advance as tolerated Discharge Activity: Limit activity as instructed Patient Instructions: Opioid Safety Activity Restrictions/Additional Instructions: 1. Discharge to home today. 2. Appointment to see Dr. Bhat in 10-14 days as above. 3. Leave Steri-Strip(s) on at home until they fall off, may shower in the interim. Keep previous drain site covered with gauze until drainage ceases as discussed. 4. [place] 5/325 1-2 tablets by mouth every 5 hours as needed for pain. #30, no refills. No lifting over 20 pounds, no repetitive bending or twisting, no strenuous pushing / pulling or other heavy activity. Ambulate regularly. May go up and down steps if needed. Discharge Attestations Time Spent in Discharge Care*: less than 30 min Quality Metrics Clinical Quality Measures During this hospital stay, did patient experience: None Coding Level of Care Code Acute Chg FW DC note Diagnoses Gallbladder perforation K82.2
== END 2021-03-07 14:00 | disposition home or self-care (01) | DRG 418 ==
LOC: ER 14:35 → MEDSURG 14:39
PROVIDERS: Physician Assistant; Admitting Provider Surgery; Emergency Provider Family Medicine; Visit Provider Surgery
PROC: 0FT44ZZ Resection of Gallbladder, Percutaneous Endoscopic Approach (ICD-10-PCS; CPT 47562; 2021-03-05 16:30)
DX: K81.0 Acute cholecystitis (principal); K82.A2 Perforation of gallbladder in cholecystitis; G89.29 Other chronic pain; M54.9 Dorsalgia, unspecified; F17.210 Nicotine dependence, cigarettes, uncomplicated; F12.90 Cannabis use, unspecified, uncomplicated
CPT/HCPCS: 36415; 74177; 76705; 80048; 80053; 80076; 81003; 83690; 85025; 88304; 94640; 96365; 96366; 96367; 96372; 96375; 99285; G0378; J0690; J1100; J1644; J1885; J2270; J2405; J2543; J2550; J2704; J3010; J3490; J7030; J7614; Q9967